=== PATIENT | female | born 1980 | race Caucasian/White ===

== ENCOUNTER 2017-07-15 09:55 | Inpatient (IN) | payer BC ==
[2017-07-15] VITALS (33 sets, daily range): BP systolic 124–170; BP diastolic 66–845; PULSE 75–120; TEMP 97.4–98.9
[~2017-07-15] VITALS: Ht 175.3 cm; Wt 92.3 kg
[~2017-07-15 09:55] MED LIST: FOLIC ACID800 MCG PO; MACRODANTIN100; PRENATAL1 TA1 PO
[2017-07-15 11:02] LABS: BASO # 0.1 (0.0-0.2); BASO % 0.4 % (0.0-2.0); EOS # 0.2 (0.0-0.7); EOS % 1.3 % (0-4.0); GRAN # 10.3 (1.4-6.5); HEMATOCRIT 34.8 % (37.0-47.0); HEMOGLOBIN 11.1 g/dl (12.5-16.0); LYMPH # 2.2 (1.2-3.4); MEAN CELL VOLUME 86 fl (80.0-100.0); MEAN CORPUSCULAR HEMOGLOBIN 27 pg (27.0-31.0); MEAN CORPUSCULAR HGB CONC 32 g/dl (33.0-37.0); MEAN PLATELET VOLUME 10.9 fl (7.4-10.4); MONO # 0.9 (0.1-0.6); MONO % 6.6 % (1.7-9.3); PLATELET COUNT 251 K/mm3 (130-400); RED BLOOD COUNT 4.06 M/mm3 (4.10-5.30); WHITE BLOOD COUNT 13.7 K/mm3 (4.8-10.8)
[2017-07-16 03:00] VITALS: BP 132/74; PULSE 90; TEMP 97.7
[2017-07-16 07:00] LABS: BASO # 0.1 (0.0-0.2); BASO % 0.4 % (0.0-2.0); EOS # 0.1 (0.0-0.7); EOS % 0.4 % (0-4.0); GRAN # 12.2 (1.4-6.5); GRAN % 77.5 % (42.2-75.2); LYMPH % 12.9 % (20.0-51.0); MEAN CELL VOLUME 83 fl (80.0-100.0); MEAN CORPUSCULAR HGB CONC 33 g/dl (33.0-37.0); MEAN PLATELET VOLUME 10.8 fl (7.4-10.4); MONO # 1.3 (0.1-0.6); MONO % 8.2 % (1.7-9.3); PLATELET COUNT 231 K/mm3 (130-400); RED BLOOD COUNT 3.72 M/mm3 (4.10-5.30); WHITE BLOOD COUNT 15.7 K/mm3 (4.8-10.8)
[2017-07-16 07:01] LABS: HEMATOCRIT 30.9 % (37.0-47.0); HEMOGLOBIN 10.1 g/dl (12.5-16.0); MEAN CORPUSCULAR HEMOGLOBIN 27 pg (27.0-31.0)
[2017-07-16 08:00] VITALS: BP 121/74; PULSE 82; TEMP 98
[2017-07-16 12:30] VITALS: BP 128/81; PULSE 73; TEMP 97.8
[2017-07-16 17:07] VITALS: BP 123/70; PULSE 74; TEMP 98
[2017-07-16 20:30] VITALS: BP 132/88; PULSE 105; TEMP 97.8
[2017-07-17 07:00] VITALS: BP 127/78; PULSE 76; TEMP 97.8
[2017-07-17] MEDS ORDERED: MOTRIN 600600 MG/TAB PO (08:43)
[2017-07-17] MEDS ORDERED: PERCOCET 325 MG1 TA2 PO (08:47)
[2017-07-17 15:45] VITALS: BP 102/58; PULSE 89; TEMP 97.7
== END 2017-07-17 18:30 | disposition home or self-care (01) | DRG 775 ==
LOC: LDRO 09:55 → LDR 10:10 → LDRO 10:11 → OB 10:11 → LDR 10:11 → OB 20:35
PROVIDERS: Obstetrics & Gynecology
PROC: 10E0XZZ Delivery of Products of Conception, External Approach (ICD-10-PCS; principal; 2017-07-15)
PROC: 0HQ9XZZ Repair Perineum Skin, External Approach (ICD-10-PCS; 2017-07-15)
DX: O99.824 Streptococcus B carrier state complicating childbirth (principal); O70.0 First degree perineal laceration during delivery; O75.89 Other specified complications of labor and delivery; Z3A.39 39 weeks gestation of pregnancy; Z37.0 Single live birth
CPT/HCPCS: J2210; J2590; J7120

== ENCOUNTER → 2017-11-29 | Outpatient (CLI) | payer BC ==
[~2017-11-29] MED LIST changes: +MOTRIN 600600 MG/TAB PO; +PERCOCET 325 MG1 TA2 PO
== END ==
LOC: COL.RAD 10:09
DX: E21.2 Other hyperparathyroidism (principal)
CPT/HCPCS: A9500